=== PATIENT | female | born 1995 | race Caucasian/White ===

== ENCOUNTER 2016-07-17 20:51 | Emergency (ER) | payer OTHER ==
[~2016-07-17] VITALS: Ht 177.8 cm; Wt 58.2 kg
[2016-07-17 21:32] LABS: HEMATOCRIT 42.4 % (36.0-46.0); MCH 29.6 PG (29.0-34.0); MCV 89.6 FL (83-99); MEAN PLAT.VOLUME 11.3 uM^3 (9.5-12.4); PLATELET COUNT 284 K/uL (156-360); RBC DIS.WIDTH-CV 13.2 % (11.8-14.6); RBC DIS.WIDTH-SD 43.1 % (39-53); RED BLOOD COUNT 4.73 M/uL (3.80-5.20); WHITE BLOOD COUNT 7.1 K/uL (4.1-10.2)
[2016-07-17 21:49] LABS: CHLORIDE 106 mEq/L (99-109); POTASSIUM 3.8 mEq/L (3.7-5.4); SODIUM 140 mEq/L (136-147)
[2016-07-17 21:51] LABS: GLUCOSE 100 mg/dL (70-99)
[2016-07-17 21:52] LABS: ANION GAP 12 MEQ/L (2-14)
[2016-07-17 21:53] LABS: TOTAL BILIRUBIN 1.6 mg/dL (0.0-1.0)
[2016-07-17 21:54] LABS: ALKALINE PHOSPHATASE 49 IU/L (3-129)
[2016-07-17 21:55] LABS: GFR ESTIMATE (CALCULATED) > 59 mL/min/
[2016-07-17 21:56] LABS: UREA NITROGEN (BUN) 8 mg/dL (9-23)
[2016-07-17 21:58] LABS: LIPASE 18 U/L (1.0-51.0)
[2016-07-17 22:03] LABS: QUANTITATIVE HCG < 4.0 MIU/ML
[2016-07-17 22:18] LABS: TROP-I INTERPRETATION NEGATIVE; TROPONIN-I < 0.01 ng/mL (0.0-0.30)
[2016-07-17 22:25] LABS: ADD MIUA? YES; BILIRUBIN NEGATIVE; BLOOD NEGATIVE; GLUCOSE (STRIP) NEGATIVE; KETONES 5; LEUKOCYTES TRACE; NITRITE NEGATIVE; PROTEIN (STRIP) 30; SPECIFIC GRAVITY 1.024 (1.000-1.030); UROBILINOGEN 0.2 MG/DL (0.2-1.0)
[2016-07-17 22:30] LABS: COLOR DK YELLOW ((YELLOW))
[2016-07-17 22:53] LABS: EPITHELIAL CELLS 1+ /HPF; MUCUS 3+ /LPF; RED BLOOD CELLS 0-5 /HPF (0-5)
[2016-07-17 22:54] LABS: BACTERIA 2+ /HPF; CASTS PRESENT /LPF; CRYSTALS NONE SEEN; FINE GRANULAR CASTS 0-5 /LPF; HYALINE CASTS 0-5 /LPF; UCUL ADDED? YES
[2016-07-18 00:23] LABS: TROP-I INTERPRETATION NEGATIVE; TROPONIN-I < 0.01 ng/mL (0.0-0.30)
[2016-07-18] MEDS ORDERED: ZOFRAN ODT4 MG PO (00:37)
[2016-07-18] MEDS ORDERED: KEFLEX500 MG PO (00:39)
[2016-07-18 01:02] VITALS: BP 117/78
== END 2016-07-18 01:03 | disposition home or self-care (01) ==
LOC: EME 20:51
PROVIDERS: Physician Assistant Medical
DX: R07.89 Other chest pain (principal); N39.0 Urinary tract infection, site not specified; R11.2 Nausea with vomiting, unspecified; R00.2 Palpitations
CPT/HCPCS: 71020; 80053; 81003; 83690; 84484; 84702; 85027; 87086; 93005; 99281; 99284